=== PATIENT | female | born 1980 | race Caucasian/White ===

== ENCOUNTER 2016-09-12 17:04 | Emergency (ER) | payer OTHER ==
[~2016-09-12] VITALS: Ht 162.6 cm; Wt 61.4 kg
[2016-09-12 17:20] VITALS: BP 140/94; PULSE 99; RESP 18; O2SAT 100
[2016-09-12 18:00] LABS: APPEARANCE,URINE HAZY (CLEAR,HAZY); COLOR,URINE DARK YELLOW (YELLOW); OCCULT BLOOD,URINE LARGE (NEGATIVE); PH,URINE 5.5 (5.0-8.0); UROBILINOGEN,URINE NORMAL (NORMAL)
[2016-09-12 18:31] LABS: BASOPHILS % (AUTO) 0.9 % (0-3); EOSINOPHILS % (AUTO) 2.6 % (0-5); MONOCYTES % (AUTO) 8.9 % (4-12); Mean Corpuscular Hemoglobin 29.8 pg (27.0-35.0); Mean Corpuscular Volume 89.3 fL (81-100); NEUTROPHILS % (AUTO) 48.5 % (40-74); Platelet Count 312 bil/L (150-400)
[2016-09-12 18:40] LABS: Magnesium 2.1 mg/dL (1.6-2.6)
[2016-09-12 18:50] VITALS: BP 114/74; PULSE 93; RESP 18
[2016-09-12] MEDS ORDERED: HYDROmorphone 1 mg/mL Inj IM ONE ×2 (19:10→20:30)
--- NOTE | 2016-09-12 19:11 | ED.REPORT ---
HPI-Abd Pain F Under 40 Date of Service Sep 12, 2016 ED Provider: Adiel Fairchild MD 36-year-old female past medical history of Crohn's, factor V Leiden mutation, early chronic kidney disease, density emergency department today with bilateral abdominal pain which radiates to the back. Patient describes this as a dull / . Patient states the pain began early this morning she took a Tylenol as well as 2 oxycodones for the pain however this was unable to alleviate her pain. Patient does her own INR checks at home on Tuesdays and she states that her last INR check resulted in 2.7, the last time she had a clot she states her INR was 2.6. She states that her creatinine is chronically elevated at1.2-1.3. She has had diarrhea due to her Crohn's disease but is taking Humira as prescribed, and diarrhea has not been outside of her normal range. She drank a liter of water earlier today and does not believe she is dehydrated. She denies nausea, vomiting, fever, chills, changes in bowel or bladder, dysuria, respiratory symptoms, or chest pain. Nursing Notes Stated Complaint: FLANK PAIN/UPPER ABDOMINAL PAIN Chief Complaint: Female Abdominal Pain Nursing Notes Reviewed: Yes ([facility] - on warfarin) Allergies: Coded Allergies: azathioprine (Verified Allergy, Severe, elevated liver enzymes, 09/12/16) prochlorperazine (Verified Allergy, Severe, panic attack, 09/12/16) sulfamethoxazole (Verified Allergy, Severe, hives, 09/12/16) trimethoprim (Verified Allergy, Severe, hives, 09/12/16) tramadol (Verified Adverse Reaction, Severe, nausea , vomiting "felt like I was on speed", 09/12/16) pregabalin (Verified Adverse Reaction, Intermediate, numbness in hands and feet, 09/12/16) Scheduled Adalimumab (Humira) 40 Mg/0.8 Ml Pen.ij.kit 40 MG SQ WEEKLY Arnica Flower (Arnica Flower) 1 Ml Tincture 30 ML MC prn Ascorbate Calcium (Vitamin C) 500 Mg Tablet 500 MG PO DAILY Biotin (Biotin) 5,000 Mcg Tab.rapdis 5,000 MCG PO DAILY Calcium Carbonate (Calcium) 600 Mg Tablet 1,200 MG PO DAILY Cholecalciferol (Vitamin D3) (Vitamin D3) 1,000 Unit Tab.chew 1,000 UNIT PO DAILY Ferrous Sulfate, Dried (Iron) 159 Mg Tablet.er 65 MG PO DAILY Fluticasone Propionate (Flonase Allergy Relief) 50 Mcg/Actuation [place].susp 1 SPRAY NOSTRIL DAILY Hydroxychloroquine Sulfate (Hydroxychloroquine Sulfate) 200 Mg Tablet 200 MG PO BID Lisinopril (Lisinopril) 2.5 Mg Tablet 2.5 MG PO DAILY [place]-3/Dha/Epa/Fish Oil (Fish Oil 1,000 mg Softgel) 1 Each Capsule 2 EACH PO BID Phytonadione (Vitamin K) 100 Mcg Tablet 100 MCG PO DAILY Valacyclovir (Valacyclovir) 500 Mg Tablet 500 MG PO DAILY Warfarin Sodium (Coumadin) 4 Mg Tablet 4 MG PO DAILY 09/12 and 09/13, 3.5mg on thursday 09/14, 4mg Friday 09/15 then recheck INR Scheduled PRN Acetaminophen (Acetaminophen) 500 Mg Tablet 500 MG PO Q6H PRN PRN For Pain Bisacodyl (Dulcolax) 5 Mg Tablet.dr 5 MG PO DAILY PRN PRN For Constipation Cetirizine HCl (Zyrtec) 10 Mg Capsule 10 MG PO DAILY PRN PRN allergies Cyclobenzaprine (Cyclobenzaprine) 10 Mg Tablet 10 MG PO TID PRN PRN Spasm Diclofenac Sodium (Diclofenac Sodium) 1 % Gel..gram. 1 APPLIC TP PRN For Pain Dicyclomine (Dicyclomine) 20 Mg Tablet 20 MG PO QID PRN PRN For GI Cramps Docusate Sodium (Colace) 100 Mg Capsule 100 MG PO DAILY PRN PRN For Constipation Lactase (Lactaid) 3,000 Unit Tablet 3 TAB PO DAILY PRN PRN For GI Cramps Naratriptan (Naratriptan) 2.5 Mg Tablet 2.5 MG PO BID PRN PRN For Headache may use 2nd dose 2hrs after 1st dose if migraine not resolved Ondansetron ODT (Ondansetron ODT) 4 Mg Tab.rapdis 4 MG PO QID PRN PRN For Nausea Oxycodone (Roxicodone) 5 Mg Tablet 5 MG PO Q4H PRN PRN For Pain Promethazine (Promethazine) 25 Mg Tablet 25 MG PO Q6H PRN PRN For Nausea Promethazine (Promethazine) 25 Mg Tablet 25 MG PO Q6H PRN PRN For Nausea Zolpidem (Zolpidem) 5 Mg Tablet 5 MG PO HS PRN PRN For Insomnia diphenhydrAMINE HCl (Benadryl) 25 Mg Capsule 25 MG PO Q4 PRN PRN For Itching General Time Seen by MD: 18:30 Chief Complaint Abdominal pain Hx Obtained From: Patient Sudden in Onset?: Yes Onset Occurred: 5 - 8 hours ago Symptom Duration: Constant Location: : LUQ: RUQNo: Abdomen lower, Abdomen upper, Epigastric, Pelvis, Periumbilical, Suprapubic Radiation: : Back (bilaterally) Severity: Current: Pain level 8 out of 10 Risk Factors Ectopic Risk Stratification Risk factors reviewed CAD Risk Stratification Risk factors reviewed TAD Risk Stratification Risk factors reviewed Past Medical History Past Medical History Factor V Leiden mutation Crohn's disease Early chronic kidney disease Smoking History Never Smoker Social History Alcohol Use: Denies alcohol use Drug Use: Denies drug use Review of Systems Basic Review of Systems Hematologic: No bleeding, No bruising Skin: No bruising, No rash, No itch Neurologic: NL mental status, No weakness, No numbness Constitutional: Denies: Chills, Fever Respiratory: Denies: Dyspnea on exertion, Non-productive cough Cardiovascular: Denies: Chest pain GI: Reports: Abdominal pain, Diarrhea (typical Crohn's disease) Female: Reports: Hematuria, Denies: Dysuria, Incontinence Complete sys rev & neg: except as marked. Physical Exam Initial Vital Signs Vital Signs (First) Date Time Temp Pulse Resp B/P Pulse Ox O2 Delivery O2 Flow Rate FiO2 09/12/16 17:20 36.9 99 18 140/94 100 Room Air Initial VS: Reviewed, Vital signs normal Head / Eyes: Atraumatic, Normocephalic, PERRL ENT: Mucous membranes moist, Conjunctiva normal, No scleral icterus Neck: Supple, Non-tender, Full range of motion Lymphatic: No lymphadenopathy Extremities: Vascular intact, Neuro intact, No swelling, No tenderness Skin: Warm, Dry, No cyanosis Neurologic: Alert, Oriented, Nonfocal Psychiatric: Mood/affect normal, Behavior normal, Normal thought content General/Constitutional: Awake, Alert, No acute distress, Well appearing, Well developed Abdomen: Atraumatic, Soft, No guarding, No rebound, BS normoactive, No palpable mass, No pulsatile mass Tenderness/Guarding/Rebound: Positive: Tender LUQ... (Moderate), Tender RUQ... (Moderate), Negative: Tender epigastric, Tender periumbilical, Tender suprapubic Organomegaly / Mass / Hernia: Negative: Hepatomegaly, Splenomegaly Interpretation & Diagnostics Lab Results Interpretation Result Diagram: 09/12/16 1800 09/12/16 1800 Test 09/12/16 17:42 09/12/16 18:00 09/12/16 19:00 Urine Color Dark yellow (YELLOW) Urine Appearance Hazy (CLEAR,HAZY) Urine pH 5.5 (5.0-8.0) Urine Specific [place] 1.025 (1.003-1.035) Urine Protein 30mg/dL (NEG,TRACE) Urine Glucose (UA) Negativemg/dL (NEGATIVE) Urine Ketones Negativemg/dL (NEGATIVE) Urine Occult Blood Large (NEGATIVE) Urine Nitrite Negative (NEGATIVE) Urine Bilirubin Negative (NEGATIVE) Urine Urobilinogen Normalmg/dL (NORMAL) Urine Leukocyte Esterase Negative (NEGATIVE) Urine RBC Packed/hpf (0-2) Urine WBC 0-5/hpf (0-5) Urine Epithelial Cells Few/hpf (NONE-MOD) Urine Crystals None seen (NONE SEEN) Urine Bacteria Few/hpf (NONE-FEW) Urine Hyaline Casts None/lpf (NONE) Urine Granular Casts None seen (NONE SEEN) Urine Waxy Casts None seen (NONE SEEN) Urine Red Blood Cell Casts None seen (NONE SEEN) Urine White Blood Cell Casts None seen (NONE SEEN) Urine Mucus None seen (None Seen) Urine Trichomonas None seen (NONE SEEN) Urine Yeast None (NONE SEEN) Urinalysis Comment None Urine Culture Reflexed Not indicated White Blood Count 7.1th/mm3 (3.8-10.1) Red Blood Count 3.83mil/mm3 (3.90-5.20) Hemoglobin 11.4g/dL (12.0-15.6) Hematocrit 34.2% (35.0-46.0) Mean Corpuscular Volume 89.3fL (81-100) Mean Corpuscular Hemoglobin 29.8pg (27.0-35.0) Mean Corpuscular Hemoglobin Concent 33.3% (32.0-37.0) Red Cell Distribution Width 12.0% (12.3-15.4) Platelet Count 312bil/L (150-400) Neutrophils (%) (Auto) 48.5% (40-74) Lymphocytes (%) (Auto) 39.0% (14-46) Monocytes (%) (Auto) 8.9% (4-12) Eosinophils (%) (Auto) 2.6% (0-5) Basophils (%) (Auto) 0.9% (0-3) Sodium Level 140mEq/L (134-144) Potassium Level 3.9mEq/L (3.5-5.2) Chloride Level 100mEq/L (97-108) Carbon Dioxide Level 24mmol/L (18-29) Blood Urea Nitrogen 27mg/dL (6-20) Creatinine 1.51mg/dL (0.57-1.00) Estimat Glomerular Filtration Rate 56mL/min (>59) Glucose Level 88mg/dL (60-99) Calcium Level 10.0mg/dL (8.5-10.1) Magnesium Level 2.1mg/dL (1.6-2.6) Total Bilirubin 0.2mg/dL (0.0-1.2) Aspartate Amino Transf (AST/SGOT) 19U/L (0-50) Alanine Aminotransferase (ALT/SGPT) 9U/L (0-32) Alkaline Phosphatase 57U/L (25-150) Total Protein 7.8g/dL (6.4-8.4) Albumin 4.4g/dL (3.4-5.0) Lipase 52U/L (13-60) Hold Sun Top Tube Received (Received) Prothrombin Time 26.6sec (8.1-12.5) Prothromb Time International Ratio 2.44ratio Lab Results Interpretation: H&H reveals patient is slightly anemic, urine shows large amount of RBCs. Patient states is typical for her especially since she has been on warfarin BUN and creatinine are slightly elevated, possibly dehydration? However the patient states that she has been sufficiently hydrated today. Urinalysis Interpretation Positive blood CT Abd / Pelvis Interpretation IMPRESSION: 1. No evidence of nephrolithiasis or hydronephrosis. 2. No definite acute intra-abdominal abnormality. 3. Small bilateral pulmonary nodules measuring up to 5 mm. Recommend followup in 12 months if clinically indicated to demonstrate stability. Dictated by: Danielito Weber M.D. on 09/12/2016 at 19:34 Approved by: Danielito Weber M.D. on 09/12/2016 at 19:37 Re-Eval/Medical Decision Med Decision/Clinical Course Urine shows many red blood cells and states is normal for her, this explains her anemia is seen in CBC. Patient denies dysuria and I do not act UTI at this time. Patient has factor V Leiden mutation and states that the last time she had a clot her INR was 2.6, and her INR is currently 2.7, so there is some concern at this time as to whether or not the patient has a clots somewhere however, the patient denies any pulmonary symptoms including pain with inhalation, cough, shortness of breath. It is also highly unlikely that clotting of the kidneys occurred bilaterally as to explain her current pain symptoms. Increase in creatinine could be due to dehydration, however the patient states she has been sufficiently hydrated today despite the diarrhea symptoms from her Crohn's disease. CT scan reveals no acute abdominal process. Source of Hx: Old records (none in EMR) Re-Evaluation/Progress : Time of Eval: 20:25 )( Re-Eval Abdomen: Soft, Tenderness Patient Status: Condition unchanged Re-Evaluation/Progress Note: New-onset of nausea since Dilaudid was given, pain similar to previous Phenergan given for nausea, this has worked well for her previously Discussed the results of the lab tests and CT scan. Counseled Regarding: Diagnosis, Lab results, Need for follow-up, When/why to return to ED Discharge & Departure Primary Impression: Abdominal pain Abdominal location: upper abdomen, unspecified Qualified Code: R10.10 - Upper abdominal pain, unspecified Additional Impression: Anticoagulated with warfarin Disposition: Home Discharge Condition All VS Reviewed: Yes Condition: Stable Patient Instructions: Acute Abdominal Pain (ED) Additional Instructions: You came to emergency department today with pain in the upper abdomen. A battery of tests completed here today we are unable to find any significant focus for your pain. Your BUN and creatinine were slightly elevated from your typical normal, and for this reason I suggest that you increase your fluid intake as tolerated. Please return the emergency department if you experience new onset of fever, chills, nausea with vomiting, or any other constellation of symptoms which are new and you deem to be concerning Referrals: NOPCP (PCP) Attending Statment This is a patient initially seen by the resident, but I personally interviewed and examined the patient. Kiki 36-year-old female with fairly complex history who presents with a one-day history of enlarged abdominal cramping. She has a history of Crohn's as well, but states he symptoms are different. She does take oxycodone intermittently at home-but states she uses about 4-6 tabs per week. She is anticoagulated on warfarin or history of venous thromboembolism. He is had no fever. She has normal vitals. She does not appear toxic. Her abdomen is soft and clinically nontender without clinical signs of peritonitis. His poor IV access, labs reviewed will be drawn, she received an IM dose of pain and nausea medicine with some improvement. Her labs are normal, she does have some hematuria-she is anticoagulated and she claims is chronic. She also has mild renal insufficiency, and reports the creatinine 1.5 is slightly worse than her baseline creatinine 1.3. She underwent a CT scan that was performed without contrast due to renal insufficiency, but was negative for acute disease. She has sizable period of observation, but on reevaluation is doing better, continues to have a soft nontender abdomen without clinical signs of peritonitis. Again at this time, a dangerous cause the pain is not identified, I do not find indication she requires hospitalization or additional testing at this time. Plan is discharge to home-the patient has oxycodone at home, and I written a refill for promethazine and she reports works best for nausea. Routine precautions were reviewed. Rod Mckee DO Sep 12, 2016 19:08 Adiel Fairchild MD Sep 12, 2016 21:15
[2016-09-12 19:23] LABS: INR 2.44 ratio
[2016-09-12] MEDS ORDERED: LISI2.5T PO (19:37)
[2016-09-12] MEDS ORDERED: DICY20TA10 PO (19:37)
[2016-09-12] MEDS ORDERED: HYDR200T5 PO (19:37)
[2016-09-12] MEDS ORDERED: WARF4TAB PO (19:37)
[2016-09-12] MEDS ORDERED: CYCL10TA9 PO (19:37)
[2016-09-12] MEDS ORDERED: VALA500T38 PO (19:37)
--- NOTE | 2016-09-12 19:38 | DRSVH ---
PROCEDURE: CT KUB ([id number]) INDICATIONS: [place] pain TECHNIQUE: Noncontrast 5 mm thick sections acquired from the diaphragms to the symphysis. 5 mm thick coronal an d sagittal reformats were then performed. For radiation dose reduction, the following was used: aut omated exposure control, adjustment of mA and/or kV according to patient size. COMPARISON: None. FINDINGS: Image quality: Excellent. Lung bases: There is a small pulmonary nodule within the right middle lobe measuring up to 5 mm whic h is partially visualized. In the left lower lobe, there is also a small 5 mm nodule. Heart size is normal. Urinary system: Both kidneys are normal in size. No kidney stones. No hydronephrosis or perinephri c fat stranding. Both ureters appear non-dilated throughout their expected courses. Bladder wall th ickness is normal; no calcified bladder stones. Other solid organs: Liver and spleen are normal in size. Gallbladder appears within normal limits w ithout calcified gallstones. Pancreas is normal in contours. No adrenal nodules. Peritoneum and bowel: Unenhanced bowel loops demonstrate normal wall thickness and caliber. The be endix is normal in appearance. No free fluid or air. Nodes and vessels: No retroperitoneal or mesenteric adenopathy by size criteria. Aorta and inferior vena cava are normal in caliber. A filter is present within the IVC. Abdominal wall: No ventral hernias. Pelvis: No free pelvic fluid. No inguinal hernias or adenopathy. Bones: No suspicious bony lesions. No vertebral body compression fractures. IMPRESSION: 1. No evidence of nephrolithiasis or hydronephrosis. 2. No definite acute intra-abdominal abnormality. 3. Small bilateral pulmonary nodules measuring up to 5 mm. Recommend followup in 12 months if clini an indicated to demonstrate stability. Dictated by: Danielito Weber M.D. on 09/12/2016 at 19:34 Approved by: Danielito Weber M.D. on 09/12/2016 at 19:37
[2016-09-12] MEDS ORDERED: Promethazine 25 mg/mL Inj IM ONE (20:30)
[2016-09-12] MEDS ORDERED: PHYT100T PO (20:32)
[2016-09-12] MEDS ORDERED: CETI10CA PO (20:32)
[2016-09-12] MEDS ORDERED: ACET-171 PO (20:32)
[2016-09-12] MEDS ORDERED: BIOT5000 PO (20:32)
[2016-09-12] MEDS ORDERED: BISA-67 PO (20:32)
[2016-09-12] MEDS ORDERED: DIPH25CA6 PO (20:32)
[2016-09-12] MEDS ORDERED: PROM25TA14 PO ×2 (20:32→20:56)
[2016-09-12] MEDS ORDERED: FERR159T2 PO (20:32)
[2016-09-12] MEDS ORDERED: FLUT9.9S NOSTRIL (20:32)
[2016-09-12] MEDS ORDERED: ONDA4TAB12 PO (20:32)
[2016-09-12] MEDS ORDERED: OXYC-474 PO (20:32)
[2016-09-12] MEDS ORDERED: CHOL10008 PO (20:32)
[2016-09-12] MEDS ORDERED: [UNRECOGNIZED DRUG - CODE] MC (20:32)
[2016-09-12] MEDS ORDERED: ADAL40PE SQ (20:32)
[2016-09-12] MEDS ORDERED: [UNRECOGNIZED DRUG - CODE] PO (20:32)
[2016-09-12] MEDS ORDERED: DICL100G30 TP (20:32)
[2016-09-12] MEDS ORDERED: ZOLP5TAB6 PO (20:32)
[2016-09-12] MEDS ORDERED: CALC600T12 PO (20:32)
[2016-09-12] MEDS ORDERED: NARA2.5T2 PO (20:32)
[2016-09-12] MEDS ORDERED: DOCU-41 PO (20:32)
[2016-09-12] MEDS ORDERED: OMEG-38 PO (20:32)
[2016-09-12] MEDS ORDERED: ASCO-294 PO (20:32)
[2016-09-12 21:43] VITALS: BP 115/74; PULSE 106; RESP 20; O2SAT 96
== END 2016-09-12 21:41 | disposition home or self-care (01) ==
LOC: SED 17:04
DX: R10.11 Right upper quadrant pain (principal); R10.12 Left upper quadrant pain; K50.90 Crohn's disease, unspecified, without complications; Z79.01 Long term (current) use of anticoagulants; Z88.1 Allergy status to other antibiotic agents; Z88.8 Allergy status to other drugs, medicaments and biological substances
CPT/HCPCS: 36415; 74176; 80053; 81000; 81025; 83690; 83735; 85025; 85610; 96372; 99285; J1170; J2550